=== PATIENT | male | born 1950 | race Caucasian/White ===

== ENCOUNTER 2017-05-14 01:39 | Emergency (ER) | payer OTHER ==
[~2017-05-14] VITALS: Ht 172.7 cm; Wt 85.3 kg
[2017-05-14 01:46] VITALS: Ht 172.7 cm; Wt 85.3 kg
[2017-05-14 06:50] VITALS: BP 114/74
== END 2017-05-14 06:50 | disposition home or self-care (01) ==
LOC: ED 01:39
DX: T78.3XXA Angioneurotic edema, initial encounter (principal); R06.02 Shortness of breath
CPT/HCPCS: J1100; J1200

== ENCOUNTER 2020-06-07 00:13 | Emergency (ER) | payer OTHER ==
[~2020-06-07] VITALS: Ht 170.2 cm; Wt 81.6 kg
[2020-06-07 00:22] VITALS: Ht 170.2 cm; Wt 81.6 kg
[2020-06-07] MEDS ORDERED: ZIPSOR25 MG PO (01:48)
[2020-06-07] MEDS ORDERED: VOLTAREN100 GM TOP (01:48)
[2020-06-07 01:55] VITALS: BP 155/102
== END 2020-06-07 01:55 | disposition home or self-care (01) ==
LOC: ED 00:13
DX: M54.42 Lumbago with sciatica, left side (principal); S39.012A Strain of muscle, fascia and tendon of lower back, initial encounter; X58.XXXA Exposure to other specified factors, initial encounter; Y93.89 Activity, other specified; Y92.89 Other specified places as the place of occurrence of the external cause; Y99.8 Other external cause status
CPT/HCPCS: J1885